=== PATIENT | male | born 1960 | race Caucasian/White ===

== ENCOUNTER → 2017-08-17 10:34 | Outpatient (CLI) | payer OTHER, SELFPAY ==
--- NOTE | 2017-08-17 | DI.RAD.S_ITS ---
PROCEDURE: FL UPPER GI W AIR INDICATIONS: EPIGASTRIC PAIN COMPARISON: None. FINDINGS: KUB: Preprocedural hand candy molder film demonstrates a normal bowel gas pattern. No suspicious abdominal calcifications. Visualized solid organ contours appear normal. Bony structures appear unremarkable. Esophagus: Esophageal mucosa is normal on air-contrast views. On single-contrast views, there is mildly decreased esophageal peristalsis. No strictures, extrinsic mass effects, or diverticula. No hiatal hernia. There is mild spontaneous gastroesophageal reflux to the level of the lower third of the esophagus. . Stomach: The stomach is normally distensible, with normal rugal fold thickness. No mucosal masses or ulcers. Pylorus and duodenal bulb appear normal in morphology. Duodenal folds are normal in thickness as well. IMPRESSION: Esophageal dysmotility. Gastroesophageal reflux. Dictated by: Ben Tobin M.D. on 08/17/2017 at 14:28 Approved by: Ben Tobin M.D. on 08/17/2017 at 14:30
== END ==
PROVIDERS: Family Provider Family Medicine; PCP Family Medicine; Visit Provider Surgery
DX: K22.4 Dyskinesia of esophagus (principal); K21.9 Gastro-esophageal reflux disease without esophagitis
CPT/HCPCS: 74247

== ENCOUNTER → 2017-09-15 15:01 | Outpatient (CLI) | payer OTHER, SELFPAY ==
[2017-09-15 15:23] LABS: Appearance Urine UA CLEAR; Bilirubin Urine UA NEGATIVE (NEGATIVE); Color Urine UA YELLOW; Glucose Urine UA NEGATIVE (Normal); Ketones Urine UA NEGATIVE (NEGATIVE); Leukocyte Esterase Urine UA NEGATIVE (NEGATIVE); Nitrite Urine UA Negative (Negative); Occult Blood Urine UA 1+ (Negative); Protein Urine UA NEGATIVE (Negative); Urobilinogen Urine UA 0.2 E.U./dL (0.2); pH Urine UA 6.5 (4.5-8.0)
[2017-09-16 09:51] LABS: WBC Urine None Seen (0-5/HPF)
[2017-09-16 10:05] LABS: Bacteria Urine Occasional (0-1); RBC Urine 0-1/HPF (0-5/HPF)
[2017-09-16 10:06] LABS: Culture Indicated Urine Cult Not Indicated
== END ==
PROVIDERS: Family Provider Family Medicine; PCP Family Medicine; Visit Provider Internal Medicine
DX: S30.22XA Contusion of scrotum and testes, initial encounter (principal)
CPT/HCPCS: 81003; 81015

== ENCOUNTER 2017-10-07 13:25 | Day surgery (SDC) | payer OTHER, SELFPAY ==
[2017-10-07] VITALS (7 sets, daily range): BP systolic 105–141; BP diastolic 63–90; PULSE 55–64; RESP 12–20; TEMP 36.2–36.8; O2SAT 91–97; BMI 34.2
--- NOTE | 2017-10-07 | PATH_ITS ---
[facility] Accession Number: [id number] . 01 Material submitted: . ANTRAL BIOPSY . 02 Diagnosis: Biopsies Gastric Antrum and Fundus: Fragments of normal appearing antral and fundic mucosa, negative for significant inflammation. Negative for Helicobacter on H/E stain. Negative for intestinal metaplasia. Negative for dysplasia and malignancy. [facility]/10/11/2017 . 02 Electronically signed: . Rickie Rodríguez MD, Pathologist NPI- [id number] . 01 Gross description: . Received in one formalin-filled container labeled with the patient's name and labeled antral, are multiple extremely tiny less than 0.1 cm to 0.2 cm portions of tissue, entirely submitted in one cassette. ([id number]) /FRR . 02 Pathologist provided ICD-10: R10.13 . 02 CPT . 948628 Performed at: 01 [facility] [address] [facility], [place], [place] [id number] MD Hiram Dolan MD Phone: [phone] Performed at: 02 [facility] [address] [place], [place] [id number] MD Honorio Baker MD Phone: [phone]
[2017-10-07] MEDS: SODIUM CHLORIDE 0.9% 1,000 ML 200 ML IV (14:42)
--- NOTE | 2017-10-07 15:04 | PM.PREOP ---
Pre-operative Note Interval Note Pre-op Check: Yes History & Physical Reviewed by Physician and Yes Exam Performed Changes: No H&P completed within 30 days and has changed as indicated here:: History physical examination repeated. No changes since September 29, 2017. Please refer to that document for further details. Proceed with EGD today as planned. ASA Class (for procedural sedation): II
[2017-10-07] MEDS: LIDOCAINE 4% SOLN 50 ML 20 ML TOP (15:21)
[2017-10-07] MEDS: TETRACAINE/BENZOCAINE/BUTAMBEN (CETACAINE) BOTTLE 1 SPRAY TOP (15:21)
--- NOTE | 2017-10-07 15:26 | PM.OP.ENDO ---
Operative Date/Time/Diagnoses Date of procedure: 10/07/17 Time of procedure: 15:26 Pre-op diagnosis: Gastroesophageal reflux disease and epigastric pain Post-op diagnosis: other (Gastritis) Procedure & Clinicians Study performed: 1. Sedation per surgeon 2. Esophagogastroduodenoscopy with biopsy Same procedure as scheduled: Yes Indications: 56-year-old male with gastroesophageal reflux disease refractory to histamine lucila therapy and lifestyle modifications. Upper GI study was essentially unremarkable other than some reflux. EGD was recommended. Surgeon: Sagar Zamarripa Procedure Notes SCOAP/Timeout: Yes Procedure in detail: After obtaining informed consent, the patient was brought to the GI suite and placed in the left lateral decubitus position on the examination table. After placement of appropriate monitors, the patient was given incremental doses of Versed and Fentanyl until an appropriate level of sedation was achieved. A time out was held per SCOAP protocol. A bite block was gently placed between the patient's teeth. The endoscope was lubricated and then passed into the patient's posterior oropharynx. The esophagus was cannulated under direct vision and the scope was passed to the second portion of the duodenum without difficulty. The scope was then withdrawn with careful examination of all areas of the upper GI tract and mucosa. In the stomach, the instrument was retroflexed and the GE junction examined. The scope was straightened and the procedure continued with examination of the remainder of the upper GI tract. Findings are noted above. Air was aspirated from the stomach and the endoscope gently removed from the esophagus. The patient was allowed to awaken from sedation without difficulty and taken to the post-anesthesia care unit in good condition. Scope withdrawal time: Not applicable Sedation minutes: 14 Findings: gastritis and other findings (Duodenitis, mild) Specimen(s): other (Antral biopsies) Complications: none Recommendations: Reflux diet, Prescription for (Omeprazole), No ASA/NSAIDS, Start medication(s) (Omeprazole) and Will call with biopsy results Plan for aftercare: 1. Discharge to home today 2. Begin trial of proton pump inhibitor therapy once daily. Prescription provided. 3. Follow up with Dr. Zamarripa in 5-6 weeks for re-evaluation. Follow up: weeks (5-[address] Zamarripa) Disposition: PACU
[2017-10-07] MEDS: MIDAZOLAM 5 MG/5 ML VIAL IV (15:29)
[2017-10-07] MEDS: fentaNYL 250 MCG/5 ML INJ IV (15:30)
== END 2017-10-07 16:15 | disposition home or self-care (01) ==
PROVIDERS: Family Provider Family Medicine; PCP Family Medicine; Visit Provider Surgery
PROC: 0DJ08ZZ Inspection of Upper Intestinal Tract, Via Natural or Artificial Opening Endoscopic (ICD-10-PCS; CPT 43235; principal; 2017-10-07 16:00)
DX: K29.70 Gastritis, unspecified, without bleeding (principal); K21.9 Gastro-esophageal reflux disease without esophagitis; K29.80 Duodenitis without bleeding
CPT/HCPCS: 43239; 99152; J2250; J3010

== ENCOUNTER → 2017-12-28 16:33 | Outpatient (CLI) | payer OTHER, SELFPAY ==
--- NOTE | 2017-12-28 16:35 | DI.MRI.S_ITS ---
PROCEDURE: MR LUMBAR SPINE WO CON INDICATIONS: Post lamina centrum with right axial back pain TECHNIQUE: Noncontrast sagittal T1 spin echo and T2 fast echo, sagittal STIR, axial T1 and T2 fast spin echo through the lumbar spine. In cases with scoliosis, additional coronal T2 fast spin echo may be performed. COMPARISON: [facility], , L-SPINE WITHOUT CONTRAST, 10/30/2016, 9:03. FINDINGS: Image quality: Excellent. Alignment and Curvature: There is normal bony alignment. Bone Marrow: Marrow is of normal overall signal. No acute vertebral body compression fractures. Spinal Cord: Conus medullaris terminates at the T12 level. Visualized cord demonstrates normal signal and size. Paraspinous Soft Tissues: No paravertebral masses. L1-L2: Mild disc bulge. Mild facet ligamentum flavum hypertrophy. No canal stenosis. No neuroforaminal stenosis. L2-L3: Mild disc bulge. Mild facet ligamentum flavum hypertrophy. No canal stenosis. No neuroforaminal narrowing. L3-L4: Status post left hemilaminectomy. Mild disc desiccation and height loss. Broad-based disc bulge. Severe facet ligamentum flavum hypertrophy. Moderate canal stenosis. Mild bilateral neuroforaminal stenosis. Small posterior focal high intensity zone. L4-L5: Status post left hemilaminectomy. Mild disc desiccation and height loss. Broad-based disc bulge. Moderate facet ligamentum flavum hypertrophy. Mild canal stenosis. Mild bilateral foraminal stenosis. Small posterior focal high intensity zone. L5-S1: Mild disc desiccation and height loss. Broad-based disc bulge. Mild facet hypertrophy. No canal stenosis. Mild bilateral neural foraminal stenosis. IMPRESSION: 1. Disc desiccation and height loss of the lumbar spine more severe in the mid and lower lumbar spine. 2. L3-4 and L4-5 posterior annular tears. 3. Broad-based disc bulges and facet and ligamentum flavum hypertrophy with resultant moderate canal stenosis at L3-4 and mild canal stenosis at L4-5. 4. No significant foraminal stenosis of the lumbar spine. Dictated by: Kya Lewis M.D. on 12/29/2017 at 9:13 Approved by: Kya Lewis M.D. on 12/29/2017 at 9:35
== END ==
PROVIDERS: Visit Provider Physical Medicine & Rehabilitation
DX: M51.26 Other intervertebral disc displacement, lumbar region (principal); M51.27 Other intervertebral disc displacement, lumbosacral region; M48.061 Spinal stenosis, lumbar region without neurogenic claudication
CPT/HCPCS: 72148

== ENCOUNTER 2017-12-29 14:05 | Outpatient (CLI) | payer OTHER, SELFPAY ==
[2017-12-29] VITALS (9 sets, daily range): BP systolic 129–140; BP diastolic 82–96; PULSE 67–75; RESP 16–20; TEMP 36.4; O2SAT 96–99
--- NOTE | 2017-12-29 14:08 | DI.RAD.S_ITS ---
PROCEDURE: PAIN L/SI FACET INJ/BLK 1STL INDICATIONS: Lumbosacral spondylosis with post lamina centrum FINDINGS: Fluoroscopic spot filming was performed to verify placement of spinal needles at the right L4-5 and right L5-S1 level(s), as labeled on the films. Appropriate location(s) of the needle tip(s) was confirmed by injection of iodinated contrast. IMPRESSION: Successful needle tip localization for right L4-5 and right L5-S1 facet region neuroforaminal epidural steroid injection. Dictated by: Deejay Roche M.D. on 12/29/2017 at 16:17 Approved by: Deejay Roche M.D. on 12/29/2017 at 16:18
[2017-12-29] MEDS: MIDAZOLAM 5 MG/5 ML VIAL IV (14:40)
[2017-12-29] MEDS: BETAMETHASONE 30 MG/5 ML MDV 12 MG INJ (14:46)
[2017-12-29] MEDS: IOPAMIDOL 15 ML VIAL 3 ML INJ (14:46)
[2017-12-29] MEDS: BUPIVACAINE 0.5% (PF) VIAL 2 ML INJ (14:46)
--- NOTE | 2017-12-29 14:50 | PC.NURSE ---
transporting pt to recovery room in stable condition
--- NOTE | 2017-12-29 15:00 | P.PCN_ITS ---
Procedures Date/Time Date of procedure: 12/29/17 Time of procedure: 14:59 General Procedure description: PREOP DIAGNOSIS 1. FACET ARTHROPATHY, 2. AXIAL LBP, 3. MULTILEVEL DDD, POST OP DIAGNOSIS 1. FACET ARTHROPATHY, 2. AXIAL LBP, 3. MULTILEVEL DDD, PROCEDURES 1. FLUORSCOPICALLY GUIDED CONTRAST CONTROLLED FACET JOINT INJECTIONS RIGHT L4/5 , L5/S1 SURGEON: Kev Louis DO INDICATIONS: Wolf is referred for treatment of Axial LBP FINDINGS Multilevel Facet Arthropathy with Clinically significant axial LBP DESCRIPTION OF PROCEDURE Fluoroscopically guided, contrast-controlled right L4/5, L5/S1 facet joint injections. Following denial of allergy and review of potential side effects and complications, including, but not necessarily limited to, infection, allergic reaction, local tissue breakdown, stroke, temporary or permanent nerve injury, paralysis, and possible , the patient indicated that the patient understood and agreed to proceed. An informed consent document was signed by the patient, witnessed by a nurse, and placed in the patient's chart. Additionally, other treatment options including medications, modalities, and physical therapy were reviewed with the patient. After review of previous anaesthesic history and IV conscious sedation the patient was deemed safe to proceed with todays procedure with IV conscious sedation as ASA class II designation. Safety time-out was performed to confirm patient ID, procedure to be performed and site of procedure. IV sedation was accomplished with a combination of 3mg was administered by the RN after DO order , titrated to patient comfort during the course of the procedure while the patient remained responsive to all verbal commands. In the prone position, following sterile prep and drape of the lumbar region, the posterior aspect of the right L4/5, L5/S1 facet joints were identified fluoroscopically. The skin was anesthetized via a 25-gauge 1.5-inch needle with 1% lidocaine solution into the corresponding facet joints. At this point, a 22-gauge 3.5-inch spinal needle was atraumatically introduced and advanced under fluoroscopic guidance into the corresponding facet joints. Following negative aspiration, injections of approximately 0.2-cc of Isovue 200 confirmed interarticular placement without vascular uptake. Radiological data, including multiple fluoroscopic views of the lumbosacral spine, reveal a spinal needle at the right L4/5, L5/S1 facet joints. Subsequent views show flow of contrast material both superiorly and inferiorly within the joint space without vascular or intrathecal uptake. At this point, a total of 0.5 cc including a mixture of 0.25cc Marcaine and 0.25cc betamethasone was injected without complication into each of the corresponding facet joints. The procedure tolerated the procedure well without signs or symptoms of complications prior to transfer to the recovery area continued monitoring without incident. The patient was then transferred to the recovery area where they were observed for an appropriate period of time after the injection. The patient reported a VAS score of 7 prior to the procedure and a post-procedure VAS of 0. Total Fluoroscopy Time: 12.7 seconds Total Conscious Sedation Time: 24min POST OP INSTRUCTIONS The patient was provided a Pain Log to continue to record their response to the target-specific procedure prior to follow-up visit with their referring physician. Additionally, specific post-injection care instructions and a contact number to our office were provided if concerns arise regarding possible complications associated with the procedure are suspected. Kev Louis DO Complications: none
--- NOTE | 2017-12-29 15:27 | PC.NURSE ---
pt returned from procedure via wheelchair with Keyonna SOLITARIO, pt alert and able to transfer to chair with minimal assist. denies pain
== END 2017-12-29 15:34 ==
LOC: RAD 14:06
PROVIDERS: Visit Provider Physical Medicine & Rehabilitation
DX: M47.817 Spondylosis without myelopathy or radiculopathy, lumbosacral region (principal); M47.816 Spondylosis without myelopathy or radiculopathy, lumbar region; M51.36 Other intervertebral disc degeneration, lumbar region; M51.37 Other intervertebral disc degeneration, lumbosacral region; M54.5 Low back pain; M96.1 Postlaminectomy syndrome, not elsewhere classified
CPT/HCPCS: 64493; 99152; J0702; J2250

== ENCOUNTER → 2018-06-01 15:57 | Outpatient (CLI) | payer OTHER, SELFPAY ==
[2018-06-01 17:02] LABS: Alanine Aminotransferase 45 IU/L (21-72); Albumin 4.9 g/dL (3.5-5.0); Albumin Globulin Ratio 1.6 (1.0-2.8); Alkaline Phosphatase 88 U/L (38-126); Aspartate Aminotransferase 32 IU/L (17-59); Bilirubin Total 0.5 mg/dL (0.2-1.3); Bilirubin Unconjugated 0.2 mg/dL (0.0-1.1); Gamma Glutamyl Transpeptidase 42 U/L (15-73); HEMOLYSIS 16 (0-50); Total Protein 7.9 g/dL (6.3-8.2)
[2018-06-01 17:09] LABS: Hemoglobin A1C% w Est Avg Glu 5.7 % (4.0-6.0)
[2018-06-01 17:23] LABS: Vitamin D 25 Hydroxy (D3) 34.1 ng/mL (30.0-100.0)
== END ==
PROVIDERS: PCP Student in an Organized Health Care Education/Training Program; Visit Provider Student in an Organized Health Care Education/Training Program
DX: E55.9 Vitamin D deficiency, unspecified (principal); E66.9 Obesity, unspecified; R73.9 Hyperglycemia, unspecified; R10.9 Unspecified abdominal pain
CPT/HCPCS: 36415; 80076; 82306; 82977; 83036

== ENCOUNTER 2018-08-11 06:34 | Day surgery (SDC) | payer OTHER, SELFPAY ==
--- NOTE | 2018-08-11 | PATH_ITS ---
[facility] Accession Number: [id number] . 01 Material submitted: . PART A: colon - SIGMOID POLYP PART B: colon - TRANSVERSE COLON POLYP . 02 Diagnosis: A. Sigmoid Polyp: Tubular adenoma; negative for high-grade dysplasia. . B. Transverse Colon Polyp: Tubular adenoma; negative for high-grade dysplasia. [facility]/08/12/2018 . 02 Electronically signed: . Sofiya Wallace MD, Pathologist NPI- [id number] . 01 Gross description: . Part A: SIGMOID POLYP: Received in formalin is 1 fragment(s) of larsen, soft tissue measuring 0.2 x 0.2 x 0.2 cm which is entirely submitted and submitted entirely in 1 cassette(s) Part B: TRANSVERSE COLON POLYP: Received in formalin is 1 fragment(s) of larsen, soft tissue measuring 0.4 x 0.3 x 0.2 cm which is entirely submitted and submitted entirely in 1 cassette(s) /DMC /[facility] . 02 Pathologist provided ICD-10: K63.5 . 02 CPT . 623404, [id number] Performed at: 01 [facility] [address] [id number] MD Hiram Dolan MD Phone: [phone] Performed at: 02 [facility] [address] [place], [place] [id number] MD Fanny Noonan MD Phone: [phone]
[2018-08-11 07:23] VITALS: BP 140/93; PULSE 85; RESP 16; TEMP 36.7; O2SAT 97; BMI 32.8
--- NOTE | 2018-08-11 07:29 | PM.HP.1 ---
History of Present Illness Date Patient Seen: 08/11/18 Time Patient Seen: 07:29 Chief complaint: [id number] Narrative: 57yo M for surveillance colonoscopy. Had first low risk screening at age 52 and a few small benign polyps were found. No family history, no alarm symptoms. Hypertensive this AM but says he did not take his BP meds today and thinks it is just from the stress of prep and not sleeping. Patient History Medical History Gastroesophageal reflux disease (Acute) Hayfever (Chronic 1991) Hyperlipidemia (Chronic 2005) Hypertension (Chronic 1993) Ankle pain (Resolved 1999) Chicken pox (Resolved 1971) Chronic back pain (Resolved 1986) DJD (degenerative joint disease), lumbar (Resolved 2004) Warts (Resolved 2011) Surgical History History of colonoscopy (Acute) History of esophagogastroduodenoscopy (EGD) (Acute) Anesthesia (Resolved) History of lumbar discectomy (Resolved 03/2004) History of lumbar laminectomy (Resolved 03/05/17) History of placement of ear tubes (Resolved 2016) Status post epidural steroid injection (Resolved 05/2013) Family History Brother Age: 64 Hypertension Mother Age: 86 Essential hypertension, hypertension with unspecified goal Uncomplicated asthma, unspecified asthma severity Sister Age: 66 Hypertension Sister Age: 62 Hypertension High cholesterol Father Cancer Social History Smoking Status: Never smoker Family & Social History Family History Brother Age: 64 Hypertension Mother Age: 86 Essential hypertension, hypertension with unspecified goal Uncomplicated asthma, unspecified asthma severity Sister Age: 66 Hypertension Sister Age: 62 Hypertension High cholesterol Father Cancer Tobacco & Substance use: Smoking Status Never smoker Meds Home Medications Medication Instructions Recorded Confirmed Type amlodipine 10 mg-benazepril 40 mg 1 cap PO QDAY #90 cap 08/30/17 06/30/18 Rx capsule simvastatin 20 mg tablet 20 mg PO HS #90 tab 08/30/17 06/30/18 Rx Allergies Allergy/AdvReac Type Severity Reaction Status Date / Time No Known Drug Allergies Allergy Verified 06/30/18 15:00 Review of Systems Constitutional Constitutional: Reports as per HPI Exam Narrative Exam Narrative: AAO, NAD, overweight male of healthy weight EOMI, MMM, no scleral icterus unlabored RA soft, nt/nd MAEW visible skin dry and intact Assessment & Plan (1) History of colon polyps: Current visit: Yes Status: Acute Assessment & Plan narrative: - surveillance colonoscopy --> all R/B/A discussed and pt wishes to proceed
[2018-08-11] MEDS: SODIUM CHLORIDE 0.9% 1,000 ML 200 ML IV (07:39)
[2018-08-11] MEDS: fentaNYL 250 MCG/5 ML INJ IV (07:49)
[2018-08-11] MEDS: MIDAZOLAM 5 MG/5 ML VIAL IV (07:49)
--- NOTE | 2018-08-11 08:28 | PM.OP.ENDO ---
Operative Date/Time/Diagnoses Date of procedure: 08/11/18 Time of procedure: 08:29 Pre-op diagnosis: History of colon polyps Post-op diagnosis: same Procedure & Clinicians Study performed: Surveillance Colonoscopy Same procedure as scheduled: Yes Indications: 57yo M with history of benign polyps found on first low risk screening. Here for surveillance. All risks, benefits, and alternatives discussed and pt wishes to proceed. Surgeon: Lidya Travis Procedure Notes SCOAP/Timeout: 07 Procedure in detail: After obtaining informed consent, the patient was brought to the GI suite and placed in the left lateral decubitus position on the examination table. After placement of appropriate monitors, the patient was given incremental doses of Versed and Fentanyl until an appropriate level of sedation was achieved. A time out was held per SCOAP protocol. A digital rectal examination was performed and did not reveal any masses or obstructing lesions. The colonoscope was gently passed into the patient's anus and the entire colon navigated to the level of the cecum with minimal difficulty. Prep was adequate. Once in the cecum, the scope was slowly withdrawn being sure to go before and beyond all mucosal folds and prominences as able to get a thorough examination. Two small hyperplastic appearing polyps are seen and removed with biopsy forceps, detailed below. Other findings include moderate diverticulosis, primarily of the sigmoid colon. At the level of the rectal vault, the scope was retroflexed and the internal anal canal was examined. The scope was straightened and air aspirated from the colon. The instrument was removed from the patient's body and the procedure was concluded. The patient was allowed to awaken from sedation without difficulty and taken to the post-anesthesia care unit in good condition. Scope withdrawal time: 10 min Sedation minutes: 28 Findings: diverticulosis (moderate- primarily in sigmoid, scattered in left colon) and polyp (two hyperplastic appearing 1mm polyps in sigmoid and transverse colon) Specimen(s): other (1. Transverse colon poly 2. Sigmoid colon polyp) Complications: none Impression: 1. Diverticulosis- moderate 2. Polyps- two, hyperplastic appearing Recommendations: Colonscopy in 5 years (pending path) and High fiber diet Follow up: as needed Disposition: PACU
[2018-08-11 08:31] VITALS: BP 145/91; PULSE 81; RESP 12; TEMP 36.2; O2SAT 95
[2018-08-11 08:36] VITALS: BP 126/88; PULSE 77; RESP 12; O2SAT 96
[2018-08-11 08:41] VITALS: BP 130/89; PULSE 77; RESP 11; O2SAT 96
[2018-08-11 08:46] VITALS: BP 143/92; PULSE 77; RESP 12; O2SAT 94
[2018-08-11 09:10] VITALS: BP 119/84; PULSE 72; RESP 16; TEMP 36.6; O2SAT 95
== END 2018-08-11 09:27 | disposition home or self-care (01) ==
PROVIDERS: PCP Student in an Organized Health Care Education/Training Program; Visit Provider Surgery
PROC: 0DJD8ZZ Inspection of Lower Intestinal Tract, Via Natural or Artificial Opening Endoscopic (ICD-10-PCS; CPT 45378; principal; 2018-08-11 07:45)
DX: Z86.010 Personal history of colon polyps (principal); K57.30 Diverticulosis of large intestine without perforation or abscess without bleeding; D12.5 Benign neoplasm of sigmoid colon; D12.3 Benign neoplasm of transverse colon; E78.5 Hyperlipidemia, unspecified; I10 Essential (primary) hypertension
CPT/HCPCS: 45380; 99152; 99153; J2250; J3010

== ENCOUNTER 2018-12-06 09:02 | Outpatient (CLI) | payer OTHER, SELFPAY ==
[2018-12-06] VITALS (9 sets, daily range): BP systolic 111–128; BP diastolic 75–89; PULSE 60–73; RESP 16–18; TEMP 36.2; O2SAT 93–97
--- NOTE | 2018-12-06 09:04 | DI.RAD.S_ITS ---
PROCEDURE: PAIN L/SI FACET INJ/BLK 1STL INDICATIONS: SPONDYLOSIS FINDINGS: Fluoroscopic spot filming was performed to verify placement of spinal needles at the left L4-5 and L5-S1 facet joints level(s), as labeled on the films. Appropriate location(s) of the needle tip(s) was confirmed by injection of iodinated contrast. IMPRESSION: Successful left-sided facet joint localization as discussed for steroid injection. Dictated by: Deejay Roche M.D. on 12/06/2018 at 14:55 Approved by: Deejay Roche M.D. on 12/06/2018 at 14:55
[2018-12-06] MEDS: MIDAZOLAM 5 MG/5 ML VIAL IV (10:39)
[2018-12-06] MEDS: fentaNYL 100 MCG/2 ML INJ 50 MCG IV (10:39)
[2018-12-06] MEDS: LIDOCAINE 1% 20 ML 10 ML INJ (10:44)
[2018-12-06] MEDS: BUPIVACAINE 0.5% (PF) VIAL 5 ML INJ (10:44)
[2018-12-06] MEDS: BETAMETHASONE 30 MG/5 ML MDV 12 MG INJ (10:44)
[2018-12-06] MEDS: IOPAMIDOL 15 ML VIAL 3 ML INJ (10:44)
--- NOTE | 2018-12-06 10:47 | PC.NURSE ---
ASSISTING PT OFF TABLE AND TRANSPORTING TO POST PROC AREA IN STABLE CONDITION. PASSING CARE OF PT TO KRISTIAN Duke RN.
--- NOTE | 2018-12-06 10:50 | P.PCN_ITS ---
Procedures Date/Time Date of procedure: 12/06/18 Time of procedure: 10:50 General Procedure description: PREOP DIAGNOSIS 1. FACET ARTHROPATHY, 2. AXIAL LBP, 3. MULTILEVEL DDD, POST OP DIAGNOSIS 1. FACET ARTHROPATHY, 2. AXIAL LBP, 3. MULTILEVEL DDD, PROCEDURES 1. FLUORSCOPICALLY GUIDED CONTRAST CONTROLLED FACET JOINT INJECTIONS LEFT L4/5, L5/S1 SURGEON: Kev Louis, INDICATIONS Wolf is referred by for treatment of Left Axial LBP FINDINGS Multilevel Facet Arthropathy with Clinically significant axial LBP DESCRIPTION OF PROCEDURE Fluoroscopically guided, contrast-controlled left L4/5, L5/S1 facet joint injections. Following review of allergy and review of potential side effects and complications, including, but not necessarily limited to, infection, allergic reaction, local tissue breakdown, stroke, temporary or permanent nerve injury, paralysis, and possible , the patient indicated that the patient understood and agreed to proceed. An informed consent document was signed by the patient, witnessed by a nurse, and placed in the patient's chart. Additionally, other treatment options including medications, modalities, and physical therapy were reviewed with the patient. After review of previous anaesthesic history and IV conscious sedation the patient was deemed safe to proceed with todays procedure with IV conscious sedation as ASA class II designation. Safety time-out was performed to confirm patient ID, procedure to be performed and site of procedure. IV sedation was accomplished with a combination of 1mg of Versed and 50mcg of Fentanylwas administered by the RN after DO order, titrated to patient comfort during the course of the procedure while the patient remained responsive to all verbal commands. In the prone position, following sterile prep and drape of the lumbar region, the posterior aspect of the left L4/5, L5/S1 facet joints were identified fluoroscopically. The skin was anesthetized via a 25-gauge 1.5-inch needle with 1% lidocaine solution into the corresponding facet joints. At this point, a 22- gauge 3.5-inch spinal needle was atraumatically introduced and advanced under fluoroscopic guidance into the corresponding facet joints. Following negative aspiration, injections of approximately 0.2-cc of Isovue 200 confirmed interarticular placement without vascular uptake. Radiological data, including multiple fluoroscopic views of the lumbosacral spine, reveal a spinal needle at the left L4/5, L5/S1 facet joints. Subsequent views show flow of contrast material both superiorly and inferiorly within the joint space without vascular or intrathecal uptake. At this point, a total of 0.5 cc including a mixture of 0.25cc Marcaine and 0.25cc betamethasone was injected without complication into each of the corresponding facet joints. The procedure tolerated the procedure well without signs or symptoms of complications prior to transfer to the recovery area continued monitoring without incident. The patient was then transferred to the recovery area where they were observed for an appropriate period of time after the injection. The patient reported a VAS score of 7 prior to the procedure and a post-procedure VAS of 0. Total Fluoroscopy Time: 12.7 seconds Total Conscious Sedation Time: 24min POST OP INSTRUCTIONS The patient was provided a Pain Log to continue to record their response to the target-specific procedure prior to follow-up visit with their referring physician. Additionally, specific post-injection care instructions and a contact number to our office were provided if concerns arise regarding possible com plications associated with the procedure are suspected. Kev Louis DO Complications: none
--- NOTE | 2018-12-06 11:31 | PC.NURSE ---
1050 arrived via w/c post procedure, able to transfer self from w/c to recliner without assist, resuming care from estefania hoskins. snacks and drinks provided and tolerated.
== END 2018-12-06 11:22 | disposition home or self-care (01) ==
LOC: RAD 09:03
PROVIDERS: PCP Student in an Organized Health Care Education/Training Program; Visit Provider Physical Medicine & Rehabilitation
DX: M47.817 Spondylosis without myelopathy or radiculopathy, lumbosacral region (principal); M47.816 Spondylosis without myelopathy or radiculopathy, lumbar region; M54.5 Low back pain; M51.36 Other intervertebral disc degeneration, lumbar region; M51.37 Other intervertebral disc degeneration, lumbosacral region
CPT/HCPCS: 64493; 64494; 99152; J0702; J2250; J3010

== ENCOUNTER → 2019-10-12 07:12 | Outpatient (CLI) | payer OTHER, SELFPAY ==
[2019-10-12 09:39] LABS: BUN Creatinine Ratio 19.7 (6-22); Blood Urea Nitrogen 12 mg/dL (9-20); Calcium 9.5 mg/dL (8.4-10.2); Carbon Dioxide 27 mmol/L (22-32); Chloride 105 mmol/L (98-107); Cholesterol 162 mg/dL (140-199); Estimated Glomerular Filt Rate > 60.0 mL/min (>60); Glucose 109 mg/dL (70-100); HDL Cholesterol 46 mg/dL (40-60); HEMOLYSIS < 15 (0-50); LDL Cholesterol Calculated 89 mg/dL (<100); Sodium 140 mmol/L (137-145); Triglycerides 135 mg/dL (35-150)
[2019-10-12 10:04] LABS: Prostate Specific Antigen Scrn 0.875 ng/mL (0.1-4.0)
== END ==
PROVIDERS: PCP Student in an Organized Health Care Education/Training Program; Referring Provider Student in an Organized Health Care Education/Training Program; Visit Provider Student in an Organized Health Care Education/Training Program
DX: Z12.5 Encounter for screening for malignant neoplasm of prostate (principal); E78.5 Hyperlipidemia, unspecified
CPT/HCPCS: 36415; 80048; 80061; G0103

== ENCOUNTER 2020-02-28 13:54 | Emergency (ER) | payer OTHER, SELFPAY ==
[2020-02-28 14:01] VITALS: PULSE 91; RESP 17; O2SAT 97
[2020-02-28 14:04] VITALS: BP 161/83; PULSE 90; RESP 16; TEMP 37.3; O2SAT 97; BMI 34.8
--- NOTE | 2020-02-28 14:07 | DI.RAD.S_ITS ---
PROCEDURE: XR CHEST 1V INDICATIONS: chest pain TECHNIQUE: One view of the chest was acquired. COMPARISON: None. FINDINGS: Surgical changes and devices: None. Lungs and pleura: Lungs are clear. No pleural effusions or pneumothorax. Mediastinum: Mediastinal contours appear normal. Heart size is normal. Bones and chest wall: No suspicious bony lesions. Overlying soft tissues appear unremarkable. IMPRESSION: No acute cardiopulmonary pathology. Dictated by: Nehemiah Perry M.D. on 02/28/2020 at 13:47 Approved by: Nehemiah Perry M.D. on 02/28/2020 at 13:47
[2020-02-28 14:21] LABS: Add Manual Diff / Slide Review NO; Basophils Absolute Auto 100 /uL (0-100); Basophils Percent Auto 0.9 % (0-2); Eosinophils Absolute Auto 0 /uL (0-450); Eosinophils Percent Auto 0.3 % (2-4); Hematocrit 49.5 % (41-53); Hemoglobin 16.8 g/dL (13.5-17.5); Lymphocytes Absolute Auto 1400 /uL (1100-4500); Lymphocytes Percent Auto 13.5 % (25-40); Mean Corpuscular HGB Conc 33.9 % (30-36); Mean Corpuscular Volume 94.4 fL (80-100); Monocytes Absolute Auto 800 /uL (0-900); Monocytes Percent Auto 7.9 % (3-14); Neutrophils Absolute Auto 7900 /uL (1500-7000); Neutrophils Percent Auto 77.4 % (50-75); Platelet Count 322 X10^3/uL (150-400); Red Blood Cell Count 5.24 X10^6/uL (4.5-5.9); Red Cell Distribution Width 13.5 % (11.6-14.8); White Blood Cell Count 10.2 X10^3/uL (4.5-11.0)
[2020-02-28 14:28] LABS: Prothrombin Time 11.8 SECONDS (10.1-12.7)
[2020-02-28 14:30] VITALS: PULSE 93; O2SAT 97
[2020-02-28 14:30] LABS: PTT Partial Thromboplastin Tim 32 SECONDS (26.4-36.2)
[2020-02-28 14:32] LABS: Alanine Aminotransferase 37 IU/L (<50); Albumin 4.9 g/dL (3.5-5.0); Albumin Globulin Ratio 1.2 (1.0-2.8); Alkaline Phosphatase 115 U/L (38-126); Aspartate Aminotransferase 38 IU/L (17-59); BUN Creatinine Ratio 23.9 (6-22); Bilirubin Total 0.9 mg/dL (0.2-1.3); Blood Urea Nitrogen 16 mg/dL (9-20); Calcium 9.6 mg/dL (8.4-10.2); Carbon Dioxide 26 mmol/L (22-32); Chloride 106 mmol/L (98-107); Creatine Kinase 245 U/L (55-170); Estimated Glomerular Filt Rate > 60.0 mL/min (>60); Glucose 135 mg/dL (70-100); HEMOLYSIS 30 (0-50); Lipase 106 U/L (23-300); Sodium 140 mmol/L (137-145); Total Protein 8.9 g/dL (6.3-8.2)
[2020-02-28 14:45] LABS: Troponin I < 0.012 ng/mL (0.01-0.034)
[2020-02-28 14:47] LABS: CKMB % Relative Index 0.8 % (1.5-5.0); Creatine Kinase MB 1.97 ng/mL (<2.37)
--- NOTE | 2020-02-28 14:48 | PC.NURSE ---
pt describes his episodes as fluttering in his stomach. pt has a kardia monitor that picked up afib and a unifocal pvc.
--- NOTE | 2020-02-28 14:52 | ED_ITS ---
HPI - Arrhythmia/Palpitations General Chief Complaint: Arrhythmia/Palpitations Stated Complaint: arms heavy/pulse high/?a-fib x1day Time Seen by Provider: 02/28/20 14:25 Source: patient Mode of arrival: Ambulatory Limitations: no limitations History of Present Illness HPI narrative: Patient is a 59-year-old male history of high blood pressure here for evaluation of palpitations. States that he has had palpitations in the past. There off and on. They occur several times throughout the day. Do not last very long. Not associated with chest pain or shortness of breath or lightheaded. They been happening more frequently lately so he ordered a device off the Internet that allows him to check his pulse with and happen his phone. He states that earlier today his pulse rate was in the 160s when he was having symptoms. He also was having symptoms when his EKG was performed here in the ER but time my evaluation he was not. Has had a Holter monitor in the past but he states this was for a different reason and was many years ago. Has not seen anybody about these symptoms. Related Data Previous Rx's Medication Instructions Recorded celecoxib 200 mg capsule 200 mg PO DAILY #30 cap 01/16/19 amlodipine 10 mg-benazepril 40 mg 1 cap PO QDAY #90 cap 10/05/19 capsule simvastatin 20 mg tablet 20 mg PO HS #90 tab 10/05/19 Allergies Allergy/AdvReac Type Severity Reaction Status Date / Time No Known Drug Allergies Allergy Verified 10/05/19 09:19 Review of Systems Constitutional Constitutional: Denies fever(s) and Denies headache(s) ENT Ears, Nose, Mouth, and Throat: Denies headache(s) Cardiovascular Cardiovascular: Denies chest pain, Reports rapid heart rate, Reports irregular heart rhythm, Denies lightheadedness and Denies dyspnea Respiratory Respiratory: Denies cough and Denies dyspnea Gastrointestinal Gastrointestinal: Denies abdominal pain, Denies nausea and Denies vomiting Musculoskeletal Musculoskeletal: Denies arthralgias and Denies myalgias Integumentary/Breasts Skin/Breast: Denies lesions and Denies rash Neurologic Neurologic: Denies behavioral changes and Denies headache(s) Psychiatric Psychiatric: Denies behavioral changes Hematologic/Lymphatic Hematologic/Lymphatic: Denies easy bleeding and Denies easy bruising Allergic/Immunologic Allergic/Immunologic: Denies urticaria Patient History Medical History Ankle pain (1999) Chicken pox (1971) Chronic back pain (1986) DJD (degenerative joint disease), lumbar (2004) Gastroesophageal reflux disease Hayfever (1991) Hyperlipidemia (2005) Hypertension (1993) Warts (2011) Surgical History Anesthesia History of colonoscopy History of esophagogastroduodenoscopy (EGD) History of lumbar discectomy (03/2004) History of lumbar laminectomy (03/05/17) History of placement of ear tubes (2016) Status post epidural steroid injection (05/2013) Family History Brother Age: 65 Hypertension Mother Age: 87 Essential hypertension, hypertension with unspecified goal Uncomplicated asthma, unspecified asthma severity Sister Age: 67 Hypertension Sister Age: 63 Hypertension High cholesterol Father Cancer Social History household members: spouse Smoking Status: Never smoker Smoking Status: Never smoker Exam Initial Vital Signs Initial Vital Signs: Vital Signs Pulse Rate 91 H 02/28/20 14:01 Respiratory Rate 17 02/28/20 14:01 Pulse Oximetry 97 02/28/20 14:01 Const General: cooperative, comfortable and well developed Limitations: mental status not altered HENMT Head: normal to inspection and normocephalic Resp Effort & Inspection: normal respiratory effort Auscultation: clear to auscultation bilaterally Cardio Rate: regular rate Rhythm: regular rhythm GI Inspection: non-distended Palpation: soft Skin Lesions: no lesions Rashes: no rashes Neuro General: patient alert, patient awake and patient oriented x3 Cognition: normal cognition Speech: speech normal Extrem General: normal to inspection, capillary refill normal and No edema Psych Appearance: grossly normal and well kempt Course Orders Ordered: ED Orders 02/28/20 14:07 XR chest 1V Stat EKG-12 Lead Stat 02/28/20 14:14 Complete Blood Count AUTO DIFF Stat Comprehensive Metabolic Panel Stat Lipase Stat Partial Thromboplastin Time Stat Prothrombin Time INR Stat Troponin & CK Cardiac Panel Stat Vital Signs Vital signs: Vital Signs - 8 hr 02/28/20 14:01 02/28/20 14:04 02/28/20 14:30 Temperature 99.2 F Pulse Rate 91 H 90 93 H Respiratory Rate 17 16 Blood Pressure 161/83 H Pulse Oximetry 97 97 97 02/28/20 15:00 Temperature Pulse Rate 80 Respiratory Rate 15 Blood Pressure Pulse Oximetry 97 MDM - Arrhythmia/Palpitations Lab Data Attestation: I reviewed the patient's lab results. Result diagrams: 02/28/20 14:14 02/28/20 14:14 Labs: Lab Results 02/28/20 02/28/20 02/28/20 Range/Units 14:14 14:14 14:14 WBC 10.2 (4.5-11.0) X10^3/uL RBC 5.24 (4.5-5.9) X10^6/uL Hgb 16.8 (13.5-17.5) g/dL Hct 49.5 (41-53) % MCV 94.4 (80-100) fL MCH 32.0 (26-34) PG MCHC 33.9 (30-36) % RDW 13.5 (11.6-14.8) % Plt Count 322 (150-400) X10^3/uL Neut % (Auto) 77.4 H (50-75) % Lymph % (Auto) 13.5 L (25-40) % [place] % (Auto) 7.9 (3-14) % Eos % (Auto) 0.3 L (2-4) % Baso % (Auto) 0.9 (0-2) % Neut # (Auto) 7900 H (3684-3214) /uL Lymph # (Auto) 1400 (7173-6754) /uL [place] # (Auto) 800 (0-900) /uL Eos # (Auto) 0 (0-450) /uL Baso # (Auto) 100 (0-100) /uL PT 11.8 (10.1-12.7) SECONDS INR 1.0 (0.9-1.3) APTT 32 (26.4-36.2) SECONDS Sodium 140 (137-145) mmol/L Potassium 4.0 (3.4-5.1) mmol/L Chloride 106 (98-107) mmol/L Carbon Dioxide 26 (22-32) mmol/L BUN 16 (9-20) mg/dL Creatinine 0.67 (0.66-1.25) mg/dL Estimated GFR > 60.0 (>60) mL/min BUN/Creatinine Ratio 23.9 H (6-22) Glucose 135 H (70-100) mg/dL Calcium 9.6 (8.4-10.2) mg/dL Total Bilirubin 0.9 (0.2-1.3) mg/dL AST 38 (17-59) IU/L ALT 37 (<50) IU/L Alkaline Phosphatase 115 (38-126) U/L Total Creatine Kinase 245 H (55-170) U/L CK-MB (CK-2) 1.97 (<2.37) ng/mL CK-MB (CK-2) Rel Index 0.8 L (1.5-5.0) % Troponin I < 0.012 (0.01-0.034) ng/mL Total Protein 8.9 H (6.3-8.2) g/dL Albumin 4.9 (3.5-5.0) g/dL Globulin 4.0 (1.7-4.1) g/dL Albumin/Globulin Ratio 1.2 (1.0-2.8) Lipase 106 (23-300) U/L Imaging Data Chest x-ray: Radiologist's Impresson: [address] [id number] ReportSigned Patient: Wolf Serrano EMR#: [id number]: 1960Acct:[id number]/Sex: 59 / MDate of Service: 02/28/20Loc: EDAccession Number: [id number] Procedure: XR chest 1V Ordering Provider: Tate Bagley D.O. PROCEDURE: XR CHEST 1V INDICATIONS: chest pain TECHNIQUE: One view of the chest was acquired. COMPARISON: None. FINDINGS: Surgical changes and devices: None. Lungs and pleura: Lungs are clear. No pleural effusions or pneumothorax. Mediastinum: Mediastinal contours appear normal. Heart size is normal. Bones and chest wall: No suspicious bony lesions. Overlying soft tissues appear unremarkable. IMPRESSION: No acute cardiopulmonary pathology. Dictated by: Nehemiah Perry M.D. on 02/28/2020 at 13:47 Approved by: Nehemiah Perry M.D. on 02/28/2020 at 13:47 ECG Data Attestation: I personally reviewed and interpreted this ECG as follows: Prior ECG tracings: not available for review Interpretation: Sinus rhythm Ventricular rate 88 Normal axis Normal QRS Normal QTC No ST T wave changes MDM Narrative Medical decision making narrative: The heart monitor the patient bought off the Internet correlated with our monitor here in the ER. He was having symptoms when he had the EKG performed however the EKG was sinus rhythm. He was able to pull up the heart monitor rhythm strips on his phone and if these are corrected is consistent with atrial fibrillation. We did discuss atrial fibrillation. Informed him that he needed to contact his primary doctor to discuss a Holter monitor for further evaluation. We discussed return precautions. I feel patient can be safely discharged home without further workup. He expressed understanding and agreement. Discharge Plan Departure Patient Disposition: Home Clinical Impression: Palpitations Instructions: Arrhythmias Activity Restrictions/Additional Instructions: Continue all of your medications as directed. I do recommend that you contact your primary doctor's office to discuss the indications for a Holter monitor. Return to the emergency department for any new or worsening symptoms Prescriptions: No Action amlodipine-benazepril [Lotrel] 10-40 mg capsule 1 cap PO QDAY Qty: 90 RF: 3 simvastatin 20 mg tablet 20 mg PO HS Qty: 90 RF: 3 celecoxib [Celebrex] 200 mg capsule 200 mg PO DAILY Qty: 30 RF: 2 Referrals: David Monk MD [Primary Care Provider] -
[2020-02-28 15:00] VITALS: PULSE 80; RESP 15; O2SAT 97
== END 2020-02-28 15:28 | disposition home or self-care (01) ==
PROVIDERS: Emergency Provider Emergency Medicine; PCP Student in an Organized Health Care Education/Training Program
DX: R00.2 Palpitations (principal); R07.9 Chest pain, unspecified; I10 Essential (primary) hypertension; E78.5 Hyperlipidemia, unspecified
CPT/HCPCS: 36415; 71045; 80053; 82550; 82553; 83690; 84484; 85025; 85610; 85730; 93005; 93010; 99283; 99284

== ENCOUNTER → 2020-03-20 15:10 | Outpatient (CLI) | payer OTHER, SELFPAY ==
--- NOTE | 2020-04-10 07:58 | PM.CARDMON.1 ---
Capital Equipment Specialist Report Referral & Results Date Patient Seen: 03/20/20 Requesting provider: David Monk Indication: Palpitations Duration of monitoring (days): 7 Diary information: Patient had 64 triggered events and no patient diary entries The patient triggered events were associated variably with (within 45 seconds) sinus rhythm, SVT, PVCs, PACs, ventricular bigeminy and ventricular trigeminy Data: Minimum heart rate was 50 beats per minute at 03:32 on 03/23/2020 Maximum heart rate was 167 beats per minute at 23:57 on 03/23/2020 during a run of SVT Less than 1% of identified beats or either ventricular supraventricular ectopic in origin. There was a 5.2nd run of ventricular bigeminy as the longest run and a 10.2nd run of ventricular trigeminy as the longest run There were 5 runs of SVT the fastest being a 10 beat run at 167 beats per minute and that was also the longest run. Some episodes of SVT may be atrial tachycardia with slower heart rates Impression: Patient with no clear connection between triggered events and anyone particular dysrhythmia. Patient with rare PACs PVCs and SVT. None of which appear to be significant as above Clinical correlation suggested
== END ==
PROVIDERS: PCP Student in an Organized Health Care Education/Training Program; Referring Provider Student in an Organized Health Care Education/Training Program; Visit Provider Student in an Organized Health Care Education/Training Program
DX: R00.2 Palpitations (principal)
CPT/HCPCS: 0296T; 0298T

== ENCOUNTER → 2020-11-14 09:56 | Outpatient (CLI) | payer OTHER, SELFPAY ==
[2020-11-14 10:43] LABS: Hemoglobin A1C% w Est Avg Glu 5.7 % (4.0-6.0)
[2020-11-14 11:27] LABS: Blood Urea Nitrogen 12 mg/dL (9-20); Calcium 9.6 mg/dL (8.4-10.2); Carbon Dioxide 26 mmol/L (22-32); Chloride 106 mmol/L (98-107); Estimated Glomerular Filt Rate > 60.0 mL/min (>60); Glucose 114 mg/dL (70-100); HEMOLYSIS < 15 (0-50); Potassium 4.1 mmol/L (3.4-5.1); Sodium 140 mmol/L (137-145)
[2020-11-14 11:58] LABS: Prostate Specific Antigen Scrn 0.815 ng/mL (0.1-4.0)
== END ==
PROVIDERS: PCP Student in an Organized Health Care Education/Training Program; Referring Provider Student in an Organized Health Care Education/Training Program; Visit Provider Student in an Organized Health Care Education/Training Program
DX: Z12.5 Encounter for screening for malignant neoplasm of prostate (principal); I10 Essential (primary) hypertension; R73.03 Prediabetes
CPT/HCPCS: 36415; 80048; 83036; G0103

== ENCOUNTER → 2021-11-13 11:11 | Outpatient (CLI) | payer OTHER, SELFPAY ==
[2021-11-13 13:10] LABS: BUN Creatinine Ratio 14.8 (6-22); Blood Urea Nitrogen 12 mg/dL (9-20); Calcium 9.2 mg/dL (8.4-10.2); Carbon Dioxide 26 mmol/L (22-32); Chloride 105 mmol/L (98-107); Cholesterol 156 mg/dL (140-199); Estimated Glomerular Filt Rate > 60 mL/min (>60); Glucose 104 mg/dL (70-100); HDL Cholesterol 51 mg/dL (40-60); LDL Cholesterol Calculated 89 mg/dL (<100); Potassium 4.3 mmol/L (3.4-5.1); Sodium 141 mmol/L (137-145); Triglycerides 82 mg/dL (35-150)
[2021-11-13 15:05] LABS: HEMOLYSIS < 15 (0-50); Prostate Specific Antigen Scrn 1.02 ng/mL (0.1-4.0)
== END ==
PROVIDERS: PCP Student in an Organized Health Care Education/Training Program; Referring Provider Student in an Organized Health Care Education/Training Program; Visit Provider Student in an Organized Health Care Education/Training Program
DX: Z12.5 Encounter for screening for malignant neoplasm of prostate (principal); E78.5 Hyperlipidemia, unspecified; I10 Essential (primary) hypertension
CPT/HCPCS: 36415; 80048; 80061; G0103

== ENCOUNTER → 2022-10-18 09:32 | Outpatient (CLI) | payer OTHER, SELFPAY ==
--- NOTE | 2022-10-18 09:33 | DI.RAD.S_ITS ---
PROCEDURE: XR CHEST 2V INDICATIONS: COUGH TECHNIQUE: 2 views of the chest were acquired. COMPARISON: [facility], , XR CHEST 1V, 02/28/2020, 14:16. FINDINGS: Surgical changes and devices: None. Lungs and pleura: Lungs are clear. No pleural effusions or pneumothorax. Mediastinum: Mediastinal contours are normal. Heart size is normal. Bones and chest wall: No suspicious bony abnormalities. Soft tissues appear unremarkable. IMPRESSION: Unremarkable two view chest x-ray Approved by: Lasha Serrano M.D. on 10/18/2022 at 12:54
== END ==
PROVIDERS: PCP Student in an Organized Health Care Education/Training Program; Referring Provider Nurse Practitioner Family; Visit Provider Nurse Practitioner Family
DX: R05.9 Cough, unspecified (principal)
CPT/HCPCS: 71046

== ENCOUNTER → 2022-11-16 09:24 | Outpatient (CLI) | payer OTHER, SELFPAY ==
[2022-11-16 09:42] LABS: Add Manual Diff / Slide Review NO; Basophils Absolute Auto 100 /uL (0-100); Eosinophils Absolute Auto 100 /uL (0-450); Eosinophils Percent Auto 1.5 % (2-4); Hemoglobin 15.7 g/dL (13.5-17.5); Lymphocytes Absolute Auto 1400 /uL (1100-4500); Lymphocytes Percent Auto 22.4 % (25-40); Mean Corpuscular HGB Conc 34.8 % (30-36); Mean Corpuscular Hemoglobin 33.2 PG (26-34); Mean Corpuscular Volume 95.3 fL (80-100); Monocytes Absolute Auto 700 /uL (0-900); Monocytes Percent Auto 10.9 % (3-14); Neutrophils Absolute Auto 4000 /uL (1500-7000); Neutrophils Percent Auto 64.2 % (50-75); Platelet Count 288 X10^3/uL (150-400); Red Blood Cell Count 4.72 X10^6/uL (4.5-5.9); Red Cell Distribution Width 13.2 % (11.6-14.8); White Blood Cell Count 6.2 X10^3/uL (4.5-11.0)
[2022-11-16 10:21] LABS: Appearance Urine UA CLEAR; Bilirubin Urine UA NEGATIVE (NEGATIVE); Color Urine UA YELLOW; Glucose Urine UA NEGATIVE (Negative); Ketones Urine UA 1+ (NEGATIVE); Leukocyte Esterase Urine UA NEGATIVE (NEGATIVE); Nitrite Urine UA NEGATIVE (Negative); Occult Blood Urine UA TRACE-INTACT (Negative); Protein Urine UA NEGATIVE (Negative); Specific Gravity Urine UA 1.015 (1.000-1.035); Urobilinogen Urine UA 0.2 E.U./dL (0.2)
[2022-11-16 10:22] LABS: Alanine Aminotransferase 54 IU/L (<50); Albumin 4.7 g/dL (3.5-5.0); Albumin Globulin Ratio 1.5 (1.0-2.8); Alkaline Phosphatase 87 U/L (38-126); Aspartate Aminotransferase 49 IU/L (17-59); BUN Creatinine Ratio 18.1 (6-22); Bilirubin Total 0.7 mg/dL (0.2-1.3); Blood Urea Nitrogen 13 mg/dL (9-20); Calcium 9.3 mg/dL (8.4-10.2); Carbon Dioxide 22 mmol/L (22-32); Chloride 104 mmol/L (98-107); Cholesterol 166 mg/dL (140-199); Estimated Glomerular Filt Rate > 60 mL/min (>60); Globulin 3.2 g/dL (1.7-4.1); Glucose 122 mg/dL (70-100); HDL Cholesterol 50 mg/dL (40-60); HEMOLYSIS 16 (0-50); LDL Cholesterol Calculated 89 mg/dL (<100); Potassium 3.8 mmol/L (3.4-5.1); Sodium 137 mmol/L (137-145); Total Protein 7.9 g/dL (6.3-8.2); Triglycerides 136 mg/dL (35-150)
[2022-11-16 10:26] LABS: Bacteria Urine None Seen; Culture Indicated Urine Cult Not Indicated; RBC Urine None Seen (0-5/HPF); Squamous Epithelial Cell Urine None Seen (0-5/HPF); Urine Comments Microscopic Normal; WBC Urine None Seen (0-5/HPF)
[2022-11-16 10:38] LABS: Vitamin D 25 Hydroxy (D3) 29.3 ng/mL (30.0-100.0)
[2022-11-16 10:52] LABS: Prostate Specific Antigen Scrn 1.24 ng/mL (0.1-4.0)
[2022-11-16 15:27] LABS: Hep C Virus Ab w/Reflex Quant NEGATIVE s/c (NEGATIVE)
== END ==
PROVIDERS: PCP Pediatrics; Referring Provider Pediatrics; Visit Provider Pediatrics
DX: E55.9 Vitamin D deficiency, unspecified (principal); E66.9 Obesity, unspecified; E78.5 Hyperlipidemia, unspecified; I10 Essential (primary) hypertension; K21.9 Gastro-esophageal reflux disease without esophagitis; K22.4 Dyskinesia of esophagus; M47.817 Spondylosis without myelopathy or radiculopathy, lumbosacral region; Z00.00 Encounter for general adult medical examination without abnormal findings; Z12.5 Encounter for screening for malignant neoplasm of prostate
CPT/HCPCS: 36415; 80053; 80061; 81001; 82306; 85025; 86803; G0103

== ENCOUNTER → 2023-11-19 10:41 | Outpatient (CLI) | payer OTHER, SELFPAY ==
[2023-11-19 12:36] LABS: Creatinine Urine Random 159.46 mg/dL; Protein (Total) Urine Random 11 mg/dL (0-12); Protein Creatinine Ratio Urine 0.06 GRAM/24H
[2023-11-19 16:33] LABS: Alkaline Phosphatase 70 U/L (38-126); BUN Creatinine Ratio 14.7 (6-22); Bilirubin Total 1.4 mg/dL (0.2-1.3); Blood Urea Nitrogen 11 mg/dL (9-20); Calcium 9.2 mg/dL (8.4-10.2); Chloride 105 mmol/L (98-107); Cholesterol 154 mg/dL (140-199); Estimated Glomerular Filt Rate > 60 mL/min (>60); Glucose 106 mg/dL (80-110); HDL Cholesterol 43 mg/dL (40-60); LDL Cholesterol Calculated 91 mg/dL (<100); Sodium 140 mmol/L (137-145); Total Protein 8.7 g/dL (6.3-8.2); Triglycerides 101 mg/dL (35-150)
[2023-11-19 16:35] LABS: Albumin Globulin Ratio 1.4 (1.0-2.8); Carbon Dioxide 21 mmol/L (22-32); Globulin 3.7 g/dL (1.7-4.1)
[2023-11-19 16:40] LABS: Alanine Aminotransferase 52 IU/L (<50); Aspartate Aminotransferase 63 IU/L (17-59); HEMOLYSIS 187 (0-50); Potassium 4.2 mmol/L (3.4-5.1)
== END ==
LOC: LAB 10:42
PROVIDERS: PCP Family Medicine; Referring Provider Family Medicine; Visit Provider Family Medicine
DX: Z00.00 Encounter for general adult medical examination without abnormal findings (principal); Z12.5 Encounter for screening for malignant neoplasm of prostate; K22.4 Dyskinesia of esophagus; E66.9 Obesity, unspecified; E78.5 Hyperlipidemia, unspecified; I10 Essential (primary) hypertension; Z79.899 Other long term (current) drug therapy
CPT/HCPCS: 36415; 80053; 80061; 82570; 84156; 86140; G0103

== ENCOUNTER 2024-03-07 12:50 | Day surgery (SDC) | payer OTHER, SELFPAY ==
--- NOTE | 2024-03-07 | PATH_ITS ---
[facility] Accession Number: [id number] No. of containers..01 Tissue . 01 Material submitted: . colon - TRANSVERSE POLYP . 01 Diagnosis: TRANSVERSE COLON POLYP: Tubular adenoma. [facility] 03/09/2024 1157 Local . 01 Electronically signed: . Reji Fung MD, PhD, Pathologist NPI- [id number] . 01 Gross description: . Received in formalin with two patient identifiers and transverse, is a single larsen soft tissue fragment, 0.3 cm in greatest dimension, submitted in A1. ([id number]) /MRV 03/08/2024 2111 Local . 01 Pathologist provided ICD-10: D12.3 . 01 CPT . 557392 Specimen Comment: A courtesy copy of this report has been sent to [phone] Performed at: [address] [facility] [id number] MD Hiram Dolan MD Phone: [phone]
[2024-03-07 13:19] VITALS: BP 155/98; PULSE 71; RESP 18; TEMP 36.6; O2SAT 96
--- NOTE | 2024-03-07 13:50 | PM.HP.1 ---
History of Present Illness History of Present Illness Date Patient Seen: 03/07/24 Time Patient Seen: 13:50 [place] [facility] [place] 63-year-old man personal history of colonic polyps here for screening colonoscopy. Last colonoscopy 2018. No family history of colon cancer. No abdominal concerns today. [facility] Medical History (Updated 03/07/24 @ 13:51 by French Agrawal MD) History of colon polyps Obesity (BMI 30.0-34.9) Patent pressure equalization (PE) tube, right Actinic keratoses Vitamin D deficiency Annual physical exam (~11/19/23) Gastroesophageal reflux disease DJD (degenerative joint disease), lumbar (2004) Ankle pain (1999) Chicken pox (1971) Chronic back pain (1986) Hayfever (1991) Hyperlipidemia (2005) Hypertension (1993) Warts (2011) Surgical History History of colonoscopy History of esophagogastroduodenoscopy (EGD) Anesthesia History of placement of ear tubes (2016) History of lumbar laminectomy (03/05/17) Status post epidural steroid injection (05/2013) History of lumbar discectomy (03/2004) Family History Brother Age: 69 Hypertension Mother Age: 91 Essential hypertension, hypertension with unspecified goal Uncomplicated asthma, unspecified asthma severity Sister Age: 71 Hypertension Sister Age: 67 Hypertension High cholesterol Father Cancer Social History household members: spouse Smoking Status: Former smoker alcohol intake: current Meds Home Medications and Allergies Home Medications Medication Instructions Recorded Confirmed Type alprazolam 0.5 mg tablet 0.5 mg PO TID PRN esophageal spasm 11/19/23 03/07/24 Rx #93 tabs amlodipine 10 mg-benazepril 40 mg 1 cap PO QDAY #90 caps 11/19/23 03/07/24 Rx capsule (Lotrel) simvastatin 20 mg tablet 20 mg PO HS #90 tabs 11/19/23 03/07/24 Rx Allergies Allergy/AdvReac Type Severity Reaction Status Date / Time No Known Drug Allergies Allergy Verified 03/07/24 13:13 Exam Vital Signs (past 8 hours): - 03/07/24 13:19 Temperature 97.9 F Pulse Rate 71 Respiratory Rate 18 Blood Pressure 155/98 H Pulse Oximetry 96 Oxygen Delivery Method Room Air Oxygen Delivery Method Room Air Narrative Exam Narrative: General adult man alert oriented no acute distress Chest nonlabored respiration Extremities warm well perfused Assessment & Plan Assessment and plan (1) History of colon polyps: Status: Acute Assessment & Plan narrative: The patient requires colorectal screening and colonoscopy is recommended. Technical details were discussed. Risks, benefits, alternatives explained. Risks including but not limited to myocardial infarction, aspiration, bleeding, pain, missed lesion, incomplete examination, need for further radiographic studies, intestinal injury, and need for major abdominal surgery were discussed. All questions were answered to their satisfaction, and they are in agreement with this plan. Time-Based Coding :: [TOTAL MINUTES] spent with patient and on the chart (including review of chart, obtaining history, exam, reviewing outside data, placing orders, documenting exam and treatment plan, and counseling patient) on [DATE].
--- NOTE | 2024-03-07 13:52 | P.OP.COLON_ITS ---
Operative Date/Time/Diagnoses Date of procedure: 03/07/24 Time of procedure: 13:52 Pre-op diagnosis: Personal history of colonic polyps Post-op diagnosis: other (Colonic polyp x1) Procedure & Clinicians Study performed: Screening colonoscopy Same procedure as scheduled: Yes Indications: Colorectal screening Personal history of colonic polyps Surgeon: French Agrawal Procedure Notes Procedure in detail: The history and physical was performed/updated and the patient is ASA class is 2. The procedure was discussed in detail with the patient. Potential risks complications including infection, bleeding, missed diagnosis, perforation, need for surgery, and were explained. Their questions were answered and informed consent was obtained. Patient was brought to the procedure room and placed standard monitoring equipment. The patient's vital signs were monitored continuously throughout the entire procedure. Prior to starting time-out was performed. The patient was placed in the left lateral recumbent position. Procedural sedation was administered by anesthesia. Examination began with a thorough inspection of the perianal area there was no evidence of fissures, fistulae, external hemorrhoids or cutaneous malignancy. The colonoscopy scope was then placed into the anal canal and was advanced to the cecum, which was identified by the ileocecal valve, the appendiceal orifice and the confluence of the taenia. The scope was then slowly withdrawn examining colon thoroughly in all directions, irrigating it of any residual stool. The scope was retroflexed within the rectum The patient tolerated the procedure well. They will be discharged once criteria are met. The prep was of good/excellent quality. The withdrawl time was 15 minutes. FINDINGS * Transverse colon 3 mm polyp removed with biopsy forceps Specimen(s): other (Transverse colon polyp) Impression: Colonic polyp x1 Post-procedure Recommendations: Colonoscopy in 5 years Disposition: same day surgery
[2024-03-07 14:21] VITALS: BP 142/97; PULSE 84; RESP 14; TEMP 36.6; O2SAT 94
[2024-03-07 14:26] VITALS: BP 139/88; PULSE 79; RESP 15; O2SAT 95
[2024-03-07 14:32] VITALS: BP 145/86; PULSE 78; RESP 14; O2SAT 95
[2024-03-07 14:36] VITALS: BP 139/91; PULSE 80; RESP 12; O2SAT 96
[2024-03-07 14:41] VITALS: BP 140/96; PULSE 81; RESP 12; O2SAT 96
== END 2024-03-07 14:59 | disposition home or self-care (01) ==
PROVIDERS: PCP Family Medicine; Referring Provider Surgery; Visit Provider Surgery
PROC: 0DJD8ZZ Inspection of Lower Intestinal Tract, Via Natural or Artificial Opening Endoscopic (ICD-10-PCS; CPT 45378; principal; 2024-03-07 14:15)
DX: Z12.11 Encounter for screening for malignant neoplasm of colon (principal); Z86.0100 Personal history of colon polyps, unspecified; D12.3 Benign neoplasm of transverse colon
CPT/HCPCS: 45380; J2704

== ENCOUNTER → 2025-02-06 12:46 | Outpatient (CLI) | payer OTHER, SELFPAY ==
--- NOTE | 2025-02-09 10:38 | DIET.OUTPTC ---
Dietary Outpatient Consult Consult Date:02/06/25 Assessment:?64 y M referred to dietitian for obesity, sleep apnea Pt reports wanting to go on Zepbound but insurance needing pt to follow with dietitian for 6 months before they will cover the medication. Reports his also sees a dietitian near [facility]. They have started making dietary changes including lean proteins, increasing fruits and veg, reducing calories, choosing whole grains. Focusing on calories and reducing portions, but results in him coming home very hungry and eating unhealthy snacks. Reports hx of always struggling with weight, but maintained strict weight in the but since then, weight has slowly gone up to 270# since end of October. Goal weight is 220#. GI symptoms: BM daily type 4-5 on [place] stool chart per pt. Denies N/V/D/C Diet Recall: works 9516-4892 0310-4317 is workout 1130 is 1 sl kevin ww toast, 2 eggs, 1 tbsp I cant believe its not butter (20 g CHO, 2 g fiber, 19 g protein) 1600 face plain yogurt with 1 tsp honey and 10 berries (15 g protein) OR homemade oatmeal 1800 3 oz chicken w 40 kcals of gravy and 1/2 packet of frozen vegs w Ms Dash (28-30 g protein) 2200 snacks 7709-1765 bed time Fluids:water 11/17/2507:38 Height 5 ft 11 in Weight 270 lb 4 oz BMI 37.7 Activity:Peloton bike 3-4x week will go til burning 500 kcals or bowflex cadrio 1/2 hr for 500 kcals burned too Nutrition Diagnosis:? Food and nutrition related knowledge deficit r/t looking for guidance for weight loss plan aeb pt assessment Interventions:? Discussed and provided appropriate resources on the following: -Balanced meals and snacks in line with myplate -Portion sizing -Education on label reading -Assessing hunger/fullness level -Adequate protein and fiber intake -Physical activity -Brainstormed appropriate meal plan based on food preferences; discussed increasing daytime protein and fiber to help with satiety and decrease night time eating Goals: -Increase berries at 4pm to 1 cup -Protein source when having oatmeal e.g. hardboiled egg/peanuts/yogurt -4-6 oz chicken at dinner meal, can add 2/3 c brown rice/quinoa for satiety -Add 1 day resistance training for 20 minutes -Night time snack as needed must pair with protein source, examples - apple+2 tbsp pb, apple and egg, toast and nut butter, chicken and fruit EER:? 85-95 g protein (1-1.2 g/kg of adj IBW for weight loss) Monitoring/Evaluations:? F/u in 1 month Electronically Signed by: Cynthia Arroyo Clinical Dietitian [address] [id number]
== END ==
LOC: DIET 12:48
PROVIDERS: PCP Family Medicine; Referring Provider Family Medicine
DX: E66.9 Obesity, unspecified (principal); G47.30 Sleep apnea, unspecified; Z71.3 Dietary counseling and surveillance; Z68.37 Body mass index [BMI] 37.0-37.9, adult
CPT/HCPCS: 97802

== ENCOUNTER → 2025-03-08 12:54 | Outpatient (CLI) | payer OTHER, SELFPAY ==
--- NOTE | 2025-03-12 15:43 | DIET.OUTPTC ---
Dietary Outpatient Consult Consult Date:03/08/25 Assessment:?64 y M referred to dietitian for obesity, sleep apnea Pt decided to lower CHO intake 1 weeks ago and lost 5 lb in 1 week. Added more protein to breakfast and [id number] meal which has helped reduced his nighttime hunger. Diet Recall: works 2065-1304 0030-3339 is workout 1130 is 2 eggs, teton dog (25 g protein) 1600 face plain yogurt w/ 10 berries (15 g protein) 1800 4 oz chicken w 40 kcals of gravy and 1/2 packet of frozen vegs w Ms Dash (28-30 g protein) 2200 sandwich w 1 sl kevin ww bread and egg salad (uses mostly icelandic yogurt over [employer]) and carrots 6585-0953 bed time =Around 85 g protein and <20 g fiber Fluids:water Ht: 5 ft 11 in Weight history: Reports hx of always struggling with weight, but maintained strict weight in the but since then, weight has slowly gone up to 270# since end of October. Goal weight is 220#. 273 lb starting 268 lb on 03/08/25 Activity:Peloton bike 3-4x week will go til burning 500 kcals or bowflex cadrio 1/2 hr for 500 kcals burned too Nutrition Diagnosis:? Inadequate fiber intake r/t reduced carb meal patterns and low fiber choices as evidenced by diet recall with <20 g fiber Interventions:? Discussed and provided appropriate resources on the following: -Discussed importance of fiber and sources and goal -Discussed with lower carb meal pattern, monitoring SFA closely -Label reading for sat. fat and fiber -Discussed if this was sustainable diet for pt -Brainstormed appropriate meal plan based on food preferences; discussed increasing daytime protein and fiber to help with satiety and decrease night time eating Goals: -Increase berries at 4pm to 1 cup -4-6 oz chicken at dinner meal, can add 2/3 c brown rice/quinoa for satiety or fruit -Add 1 day resistance training for 20 minutes -Add apple and veggies to eggs in morning -Replace the teton dog (high sat. fat with chk sausage) EER:? 85-95 g protein (1-1.2 g/kg of adj IBW for weight loss) Monitoring/Evaluations:? F/u in 1-2 months Electronically Signed by: Cynthia Arroyo Clinical Dietitian [address] [id number]
== END ==
LOC: DIET 12:56
PROVIDERS: PCP Family Medicine; Referring Provider Family Medicine
DX: E66.9 Obesity, unspecified (principal); G47.30 Sleep apnea, unspecified; Z71.3 Dietary counseling and surveillance
CPT/HCPCS: 97803